=== PATIENT | female | born 1940 | race Caucasian/White ===

== ENCOUNTER 2017-04-03 13:09 | Outpatient (CLI) | payer MEDICARE, OTHER ==
--- NOTE | 2017-04-04 11:06 | PET ---
PET CT: HISTORY: 76-year-old female with metastatic breast cancer. Exam requested for restaging. TECHNIQUE: PET scanning with CT attenuation correction was performed from the base of the brain through the prox imal thighs following the intravenous administration of 11 mCi F18-FDG in the right antecubital fossa . Imaging was performed after an uptake interval of 60 minutes. COMPARISON: PET CT dated 11/12/16. FINDINGS: There is continued hypermetabolic activity in the soft tissue mass in the inferior aspect of the righ t breast with a maximum SUV of 10.3 (previously 10.7). Hypermetabolic activity in the pleural based lesions in the right lower hemithorax (predominantly lorena phragmatic surface) measures 8.1 (previously 12.1). No hypermetabolic mediastinal, hilar, axillary, cervical, or abdominopelvic lymph nodes are seen. There is a focus of increased uptake in the liver with a SUV of 4.7, which is stable. No hypermetabolic osseous or adrenal lesions are seen. There is physiologic activity in the GI and tracts. IMPRESSION: Continued hypermetabolic activity in the right pleural based lesions, right breast mass, and liver. T here is interval decrease in SUVs of the pleural based disease. POS: [facility]
== END 2017-04-03 13:10 | disposition home or self-care (01) ==
LOC: PET 13:09
PROVIDERS: ATTEND Internal Medicine Medical Oncology
DX: C50.412 Malignant neoplasm of upper-outer quadrant of left female breast (principal)
CPT/HCPCS: 78815; A9552

== ENCOUNTER 2017-07-15 12:13 | Outpatient (CLI) | payer MEDICARE, OTHER ==
--- NOTE | 2017-07-15 15:11 | PET ---
PET CT: HISTORY: A 76-year-old female with metastatic breast cancer. Exam was requested for restaging. TECHNIQUE: PET scanning with CT attenuation correction was performed from the base of the brain through the prox imal thighs following the intravenous administration of 10.3 mCi [id number] in the right antecubital fossa. Imaging was performed after an uptake interval of 52 minutes. COMPARISON: PET CT dated 04/03/17. FINDINGS: There is continued hypermetabolic activity in the soft tissue mass in the inferior aspect of the righ t breast with a maximum SUV of 10.8 (previously 10.3). Hypermetabolic activity in the pleural-based lesions in the lower hemithorax (predominantly diaphragm atic surface) is again seen with an SUV of 9.8 (previously 8.1). The focus of increased uptake in the liver on the previous exam has resolved in the interim. No hype rmetabolic liver lesions are seen. No hypermetabolic mediastinal, hilar, axillary, cervical, or abdominopelvic lymph nodes are identifie d. No hypermetabolic osseous or adrenal lesions are seen. There is physiologic activity in the GI and tracts. IMPRESSION: Interval resolution of liver lesion. Previously noted pleural-based lesions are redemonstrated. No n ew lesions are seen. POS: [facility]
== END 2017-07-15 12:14 | disposition home or self-care (01) ==
LOC: PET 12:13
PROVIDERS: ATTEND Internal Medicine Medical Oncology
DX: C50.919 Malignant neoplasm of unspecified site of unspecified female breast (principal); C78.7 Secondary malignant neoplasm of liver and intrahepatic bile duct
CPT/HCPCS: 78815; A9552

== ENCOUNTER 2017-07-21 11:22 | Outpatient (CLI) | payer MEDICARE, OTHER | END 2017-07-21 11:23 | disposition home or self-care (01) | LOC: BICMAMMO 11:22 | PROVIDERS: ATTEND Obstetrics & Gynecology | DX: Z12.31 Encounter for screening mammogram for malignant neoplasm of breast (principal); Z80.3 Family history of malignant neoplasm of breast; Z85.3 Personal history of malignant neoplasm of breast | CPT/HCPCS: 77063; 77067 ==

== ENCOUNTER 2017-07-31 10:50 | Outpatient (CLI) | payer MEDICARE, OTHER | END 2017-07-31 10:51 | disposition home or self-care (01) | LOC: BICRAD 10:50 | PROVIDERS: ATTEND Obstetrics & Gynecology | DX: C50.919 Malignant neoplasm of unspecified site of unspecified female breast (principal); R91.8 Other nonspecific abnormal finding of lung field | CPT/HCPCS: 71046 ==

== ENCOUNTER 2017-08-26 13:56 | Outpatient (CLI) | payer MEDICARE, OTHER ==
--- NOTE | 2017-08-26 15:07 | RAD ---
TWO VIEW CHEST: HISTORY: Dyspnea. COMPARISON: Prior two view chest exam of March 2014. FINDINGS: There is increasing parenchymal opacity in the peripheral right upper lobe, extending to the pleural surface. There was some density in this region previously, although the findings today are more pron ounced. This may represent progression of chronic parenchymal and pleural change, although I cannot exclude an associated infiltrate. The left lung remains clear. The heart and mediastinum are unremarkable. IMPRESSION: Increasing opacity in the right upper lobe, some of which may represent chronic change. I cannot exc lude a superimposed infiltrate. POS: [facility]
== END 2017-08-26 13:57 | disposition home or self-care (01) ==
LOC: RAD 13:56
PROVIDERS: ATTEND Internal Medicine Pulmonary Disease
DX: R06.00 Dyspnea, unspecified (principal)
CPT/HCPCS: 71046

== ENCOUNTER 2017-10-07 12:37 | Outpatient (CLI) | payer MEDICARE ==
--- NOTE | 2017-10-07 13:04 | RAD ---
TWO VIEWS CHEST: Comparison: 08-26-17 History: Dyspnea. FINDINGS: Two views of the chest shows normal sized cardiomediastinal silhouette. There is right apical pleural thickening, unchanged. There are increased interstitial markings in the right apex. There may be a s mall right pleural effusion. IMPRESSION: Stable apical thickening and interstitial markings in the right apex. POS: [facility]
== END 2017-10-07 12:38 | disposition home or self-care (01) ==
LOC: RAD 12:37
PROVIDERS: ATTEND Internal Medicine Pulmonary Disease
DX: R06.00 Dyspnea, unspecified (principal); R91.8 Other nonspecific abnormal finding of lung field
CPT/HCPCS: 71046

== ENCOUNTER 2017-10-16 08:00 | Outpatient (CLI) | payer MEDICARE, OTHER ==
--- NOTE | 2017-10-16 17:52 | PET ---
PET WITH CT SKULL TO MID THIGH 10/16/17 COMPARISON: 07/15/17 CLINICAL HISTORY: Breast cancer. RADIOPHARMACEUTICAL: 10.5 millicuries fluorine 18 FDG IV. There is appropriate biodistribution of radiotracer activity. FINDINGS: There is redemonstration of serpentine intrinsic density of the right anterolateral chest wall which demonstrates increased metabolic activity. The morphology of this finding appears vascular given its serpentine appearance as well as insinuation in a linear, vascular fashion through the intercostal sp rubens and into the pleural region of the right chest wall. In addition, there is a stable region of coa rse calcific density along the anterolateral hepatic capsule which demonstrates increased metabolic a ctivity. There are numerous hepatic lesions demonstrated. Many of which are intrinsically dense and may relate to lesions which have responded to prior therapy with associated calcification. Evaluation of PET im aging does reveal mild increased metabolic activity although many of these hepatic lesions are too sm all to meet threshold for PET resolution. One of the dominant hyperdense lesions involving posterior segment right hepatic lobe demonstrates SUV maximum of 3.4. There is redemonstration of irregular, pl eural based density of the right hemithorax, with mild increased metabolic activity with an SUV of ap proximately 2. Multifocal interstitial, ground glass, as well as reticulonodular opacification of the lungs is again seen. IMPRESSION: 1. Redemonstration of hypermetabolic activity within the right lateral chest wall, as well as th e underlying hepatic capsule, grossly stable. The serpentine appearance of the chest wall finding as well as linear insinuation via the intercostal space to the internal aspect of the chest wall along t he pleural margin indicates a vascular process. The hypermetabolic hyperdense component along the hep atic capsule appears calcific. 2. There are multiple hyperdense hepatic lesions, many of which are too small for threshold of P ET resolution, although there is a mild degree of hypermetabolic activity as discussed above. The int rinsic hyperdensity may relate to treated lesions. Residual metastasis is suggested and continued fol lowup is therefore warranted. 3. Multifocal pulmonary parenchymal and pleural based irregular opacities with mild increased me tabolic activity, nonspecific. Inflammatory and/or neoplastic etiologies are considerations. Recommen d continued followup with dedicated CT thorax. POS: [facility]
== END 2017-10-16 08:01 | disposition home or self-care (01) ==
LOC: PET 08:00
PROVIDERS: ATTEND Internal Medicine Medical Oncology
DX: C50.919 Malignant neoplasm of unspecified site of unspecified female breast (principal); K76.9 Liver disease, unspecified; R93.8 Abnormal findings on diagnostic imaging of other specified body structures
CPT/HCPCS: 78815; A9552

== ENCOUNTER 2018-04-07 12:56 | Outpatient (CLI) | payer MEDICARE ==
--- NOTE | 2018-04-07 16:38 | PET ---
PET SCAN WITH CT ATTENUATION CORRECTION: COMPARISON: 10/18/17. HISTORY: Metastatic breast cancer. Patient is status post previous chemotherapy. Examination is requested for restaging. TECHNIQUE: PET scanning with CT attenuation correction is performed from the base of the brain to the proximal t highs following the intravenous administration of 9.7 mCi F18-FDG. FINDINGS: HEAD/NECK: No abnormal FDG localization. CHEST: There are chronic changes in the lung parenchyma, greatest in the right lung apex. FDG values associa morena with these lung parenchymal changes are at the upper limits of normal with a maximum SUV of 2.5. The degree of soft tissue attenuation in the right hemithorax is essentially unchanged. There are pos tsurgical changes compatible with a left mastectomy. In the anterior right chest soft tissues, there is persistent serpentine FDG avidity which is predomi nantly along the undersurface of the right breast. Maximum SUV is 10.1. Previously, the maximum SUV w as 7.2. The overall extent of abnormal FDG localization has increased when compared to the previous e xamination. There is persistent pleural based FDG localization involving the right hemithorax, predominantly in t he intercostal spaces. Maximum SUV is 8.4. CT used for attenuation correction demonstrates a lipoma in the lateral left hemithorax. ABDOMEN/PELVIS: There appears to be increased mottled uptake of the liver which represents multifocal hepatic maligna ncies. CT used for attenuation correction demonstrates a stippled appearance of the liver with areas of intrinsic hyperdensity which may represent calcified, treated metastatic lesions. There is persi stent hypermetabolic involving the hepatic capsule, near the hepatic dome. Maximum SUV is between 4.9 and 5.4. Previously, the maximum SUV in this region was 5.4. OSSEOUS STRUCTURES: No abnormal FDG localization. IMPRESSION: 1. Multifocal hepatic metastatic lesions are suspected, given heterogeneous localization of FDG, as well as heterogeneous appearance on the CT used for attenuation correction. Abdomen and pelvic CT if clinically warranted. 2. Worsening and increased FDG localization involving the anterior right chest wall. Persistent FDG localization with associated pleural based calcification involving the right hemithorax. POS: [facility]
== END 2018-04-07 12:57 | disposition home or self-care (01) ==
LOC: PET 12:56
PROVIDERS: ATTEND Internal Medicine Medical Oncology
DX: C50.919 Malignant neoplasm of unspecified site of unspecified female breast (principal); J94.8 Other specified pleural conditions
CPT/HCPCS: 78815; A9552

== ENCOUNTER 2018-05-05 10:53 | Outpatient (CLI) | payer MEDICARE ==
--- NOTE | 2018-05-05 12:15 | RAD ---
TWO VIEW CHEST: Comparison: 05-02-18 Clinical history: Dyspnea. FINDINGS: Stable wedge shaped pleural based density at the lateral right upper lung zone with adjacent abnormal pleural/subpleural opacification of the right apex. There is slight effacement of the lateral aspect of the right lateral costophrenic sulcus indicating pleural based density. Cardiac silhouette is mil dly enlarged. There is vascular calcification and slight prominence of the central pulmonary vasculat ure. IMPRESSION: Persistent pleural/subpleural density of the upper to mid right hemithorax. There is also pleural bas ed density at the inferolateral right hemithorax. Findings are grossly stable to recent radiograph. POS: [facility]
== END 2018-05-05 10:54 | disposition home or self-care (01) ==
LOC: RAD 10:53
PROVIDERS: ATTEND Internal Medicine Pulmonary Disease
DX: R06.00 Dyspnea, unspecified (principal); J94.8 Other specified pleural conditions
CPT/HCPCS: 71046

== ENCOUNTER 2018-07-22 10:46 | Outpatient (CLI) | payer MEDICARE ==
--- NOTE | 2018-07-22 11:40 | MMO ---
Bilateral MAMMO Bilat Screen [facility]. CLINICAL HISTORY: Patient is 77 years old and is seen for screening. The patient has the following family history of breast cancer: sister, at age 60. The patient has a history of other cancer in September,. The patient has a history of left Mastectomy in 1992. VIEWS: The views performed were: bilateral craniocaudal with tomosynthesis and bilateral mediolateral oblique with tomosynthesis. FILMS COMPARED: The present examination has been compared to prior imaging studies performed at [facility] on 07/13/2013, 07/14/2014, 07/17/2015, 07/18/2016 and 07/21/2017. MAMMOGRAM FINDINGS: The breast is heterogeneously dense, which could obscure a lesion on mammography. There are benign appearing calcifications seen in the right breast. There are no suspicious masses, suspicious calcifications, or new areas of architectural distortion. IMPRESSION: THERE IS NO MAMMOGRAPHIC EVIDENCE OF MALIGNANCY. A ROUTINE FOLLOW-UP MAMMOGRAM IN 1 YEAR IS RECOMMENDED. THE RESULTS OF THIS EXAM WERE SENT TO THE PATIENT. ACR BI-RADS Category 2 - Benign finding MAMMOGRAPHY NOTE: 1. A negative mammogram report should not delay a biopsy if a dominant of clinically suspicious mass is present. 2. Approximately 10% to 15% of breast cancers are not detected by mammography. 3. Adenosis and dense breasts may obscure an underlying neoplasm.
== END 2018-07-22 10:47 | disposition home or self-care (01) ==
LOC: BICMAMMO 10:46
PROVIDERS: ATTEND Obstetrics & Gynecology
DX: Z12.31 Encounter for screening mammogram for malignant neoplasm of breast (principal); Z80.3 Family history of malignant neoplasm of breast; Z85.89 Personal history of malignant neoplasm of other organs and systems
CPT/HCPCS: 77063; 77067

== ENCOUNTER 2018-07-28 11:19 | Outpatient (CLI) | payer MEDICARE ==
--- NOTE | 2018-07-28 15:43 | PET ---
"PRELIMINARY REPORT" Exam: PET CT skull to mid thigh COMPARISON: Prior PET/CT 10/16/2017, and 04/07/2018 HISTORY: Breast cancer TECHNIQUE: A PET/CT was performed from the skull to the mid thigh after administration of 9.9 millicu odalys of F-18 FDG. Evaluation was performed on a [employer] workstation. FINDINGS: NECK: No areas of hypermetabolic activity CHEST: Multifocal parenchymal opacities are again demonstrated within each lung, demonstrating a more confluent pleural-based/subpleural density of the posterolateral right upper hemithorax. This is not hypermetabolic although does demonstrate increased metabolic activity, with an SUV of approximate ly 2.0. Redemonstration of previously described serpentine hyper metabolic activity of the right lateral ches t wall with insinuation into the right intercostal spaces as well as the immediately adjacent underlying hepatic capsule, with maximum SUV of this constellation of findings at approximately 10.9, grossly stable to SUV of this region on prior exam. ABDOMEN/PELVIS: Multifocal hypermetabolic activity along the hepatic capsule underlying the above santy cribed abnormal hypermetabolism of the adjacent chest wall is again demonstrated, with SUV maximum of approximately 5, decreased to a similar location measuring SUV of 7 on prior exam. Numerous intrin sically hyperdense hepatic lesions are redemonstrated, with multifocal small areas of hypermetabolism within the hepatic parenchyma with SUV maximum of approximately 4, although these fin dings are difficult to reliably discern given small size and they're superimposition upon metabolic hepatic parenchyma. SKELETON: A subtle focus of borderline hypermetabolic activity, SUV 2.4 is present at the right aspec t of the sacrum CT images used for attenuation correction show no additional significant interval changes. IMPRESSION: Redemonstration of hypermetabolic activity within the right lateral chest wall, as well a s the underlying hepatic capsule and insinuating within the intercostal spaces of the right chest. Findings are grossly stable. Progressive parenchymal consolidation of the lungs bilaterally without new associated hypermetabolic activity. Grossly stable metabolic foci related to numerous intrinsic hyperdense small hepatic lesions. Indeterminate borderline hypermetabolic focus of the right aspect of the sacrum. Consider whole body bone scan as follow-up. Transcribed Date/Time: 07/28/2018 4:18 PM
== END 2018-07-28 11:20 | disposition home or self-care (01) ==
LOC: PET 11:19
PROVIDERS: ATTEND Internal Medicine Medical Oncology
DX: C50.919 Malignant neoplasm of unspecified site of unspecified female breast (principal); R91.8 Other nonspecific abnormal finding of lung field
CPT/HCPCS: 78815; A9552

== ENCOUNTER 2018-08-05 09:53 | Outpatient (CLI) | payer MEDICARE ==
--- NOTE | 2018-08-05 13:33 | NM ---
WHOLE BODY BONE SCAN: HISTORY: Left breast cancer in the upper outer left breast. Abnormality seen in the right sacrum on P ET/CT. RADIOPHARMACEUTICAL: 32 mCi technetium-99m MDP injected intravenously. COMPARISON: PET/CT 07/28/2018 FINDINGS: There is increased uptake in the shoulders, elbows, hands, and feet consistent with degenerative ch anges. No other abnormal areas of tracer localization seen in the skeleton to suggest metastatic disease. No focal increased uptake is seen in either side of the sacrum. Tracer excretion through the kidneys is within normal limits. IMPRESSION: No scintigraphic evidence of osseous metastatic disease.
== END 2018-08-05 09:54 | disposition home or self-care (01) ==
LOC: NM 09:53
PROVIDERS: ATTEND Internal Medicine Medical Oncology
DX: C50.412 Malignant neoplasm of upper-outer quadrant of left female breast (principal); R93.7 Abnormal findings on diagnostic imaging of other parts of musculoskeletal system
CPT/HCPCS: 78306; A9503

== ENCOUNTER 2018-09-22 13:06 | Outpatient (CLI) | payer MEDICARE ==
--- NOTE | 2018-09-22 13:35 | RAD ---
EXAM: Chest PA and lateral: HISTORY: Breast cancer. Facial cellulitis. COMPARISON: 04/12/2014, 05/05/2018 FINDINGS: Heart: Normal cardiac silhouette Aorta: Atherosclerosis of the aortic knob Pulmonary vessels: Normal Costophrenic angles: Costophrenic angles are clear. Lungs: Diffuse interstitial opacities throughout the lung parenchyma. The degree of opacification lef t lung base has slightly progressed. There is also increased opacification in the right upper lobe. Previously noted mass-like opacity on the lateral aspect of the right upper lobe currently measures 2 .5 x 7 cm (previous the measuring 2.7 x 2.2 cm. There is slight increased opacification of the right lung apex. Pneumothorax: No pneumothorax Osseous structures: No osseous abnormalities IMPRESSION: 1. Worsening interstitial opacities throughout the lung parenchyma which may be due to progression of disease. Superimposed infiltrate cannot be excluded. 2. Worsening opacification of the left upper lobe. Correlation made with previous PET imaging does de monstrate hypermetabolic activity in this region, worrisome for malignancy. Transcribed Date/Time: 09/22/2018 2:39 PM
== END 2018-09-22 13:07 | disposition home or self-care (01) ==
LOC: BICRAD 13:06
PROVIDERS: ATTEND Internal Medicine Medical Oncology
DX: C50.919 Malignant neoplasm of unspecified site of unspecified female breast (principal); L03.211 Cellulitis of face; R91.8 Other nonspecific abnormal finding of lung field
CPT/HCPCS: 36415; 71046; 80053; 82248; 83615; 84100; 84550; 86300

== ENCOUNTER 2018-09-28 10:24 | Outpatient (CLI) | payer MEDICARE ==
[2018-09-28] MEDS ORDERED: Iopamidol 370 76% 100 ML VIAL ONE (12:08)
--- NOTE | 2018-09-28 13:58 | CT ---
CT CHEST AND ABDOMEN WITH IV CONTRAST: DATE: 09/28/2018. PROVIDED CLINICAL HISTORY: Breast cancer. FINDINGS: Comparison is made with the CT examination 06/11/2016 and correlation is made with PET CT examinations of 07/28/2018 and 04/07/2018. The density described on chest radiograph of 09/22/2018 corresponds to the pleural parenchymal changes involving the right upper lobe and adjacent pleura on PET CT of 07/28/2018. These processes were assoc iated with FDG avidity. The morphologic appearance of these foci is that of a combination of interst itial opacity and somewhat circumscribed pleural-based fluid density. The CT appearance is not signi ficantly changed wit6h respect to the CT appearance on the attenuation correction images of the PET CT scan. There is no definite evidence for a new lung parenchymal process or a new pleural p rocess. Slightly greater than physiologic pericardial fluid is demonstrated. Vascular calcification includin g coronary calcium is again seen. The airway appears patent and of normal caliber. There is no evidence for left-sided pleural fluid. There is no evidence for pneumothorax. There is marked heterogeneity of the liver with numerous hyperdense and hypodense hepatic masses. Gi rashida that some of these were shown to be hyperdense on CT examination of 07/28/2018, implying associated calcification, assessment for calcification versus enhancement of these lesions is limited on the cu rrent study. The extent of hepatic disease appears similar to the CT slices of the PET CT scan of 07/28/2018. There is stable hyperattenuating density within the subcutaneous adipose layer of the inferi or right chest wall. The spleen, pancreas, kidneys, and adrenal glands demonstrate no evidence for a significant abnormali ty. There is no bowel dilatation, free fluid, or free air apparent. There are patchy areas of occasional ly nodular density present within the greater omentum right of midline. There is no bowel dilatation or lymph node enlargement apparent. Vascular calcifications are seen. The osseous structures demonstrate no concerning lytic or blastic lesions. IMPRESSION: Though comparison with prior studies is difficult related to lack of IV contrast on the PET CT scan o f 07/28/2018 and lack of precontrast images on the current abdominal CT, there is no definite progressi on of disease apparent on the current study. POS: [facility]
== END 2018-09-28 10:25 | disposition home or self-care (01) ==
LOC: CT 10:24
PROVIDERS: ATTEND Internal Medicine Medical Oncology
DX: C50.919 Malignant neoplasm of unspecified site of unspecified female breast (principal); L03.211 Cellulitis of face
CPT/HCPCS: 71260; 74160; Q9967

== ENCOUNTER 2019-02-09 08:54 | Outpatient (CLI) | payer MEDICARE ==
--- NOTE | 2019-02-09 10:05 | CT ---
CT Chest W Con CT abdomen with contrast History: Breast cancer with liver lesions Comparison: CT chest and abdomen September 2018 Findings: Moderate paraseptal and edema. Right lateral peripheral parenchymal and pleural opacities s imilar in size. Scarring right upper lobe is similar. No new suspicious pulmonary nodule. The lung parenchyma findings would be expected post radiation the rapy. There is an associated mixed sclerosis and lytic appearance of the right first second third and fourth ribs also likely posttreatment in nature. What appear to be pleural calcified plaques is likely due to the high density material along the righ t lateral hemithorax extending to the intercostal veins. Small/moderate pericardial fluid. Abnormal hyperenhancement of the perihepatic fluid collection. Long edly nodular contour appearance of the liver with innumerable hyperdense foci. Small perisplenic fluid collection. Kidneys unremarkable. Aortic contour are similar. Adrenal glands are unremarkable. Normal proximal small bowel rotation. The volume of the liver is decreased. There is a peripheral hypodense focus of poor enhancement withi n hepatic segment 8 and 5 with peripheral capsular retraction. The common hepatic artery is markedly attenuated. There is new peripheral wedge-shaped hypodensity of the spleen suggesting infarction involving approx imate 40% the splenic volume. There is sclerosis within the T10 vertebra is similar. No new osteolytic or osteoblastic disease. Impression: 1. Similar appearance of the peripheral mild right pleural thickening may be posttreatment in nature as there is extensive cicatrization with scarring as well as sclerosis of multiple right-sided ribs. 2. No new suspicious pulmonary nodule. 3. Progressive volume loss of the liver with peripheral wedge-shaped hypodensity involving hepatic se gments 5 and 8 suggesting infarction. There is likely iatrogenic injected hyperdense linear material along the right lateral hemithorax extending into the intercostal veins. 4. Similar appearance of the extensive hepatic hyperdense foci. 5. 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 6. New congestive changes of the mesentery likely sequelae of hepatic dysfunction. 7. Dilated pulmonary arteries indicating pulmonary hypertension.
[2019-02-09] MEDS ORDERED: Iopamidol-370 76% 500 ML 1 ML ONE (13:41)
== END 2019-02-09 08:55 | disposition home or self-care (01) ==
LOC: BICCT 08:54
PROVIDERS: ATTEND Internal Medicine Medical Oncology
DX: K76.9 Liver disease, unspecified (principal); C50.919 Malignant neoplasm of unspecified site of unspecified female breast; R91.8 Other nonspecific abnormal finding of lung field; D73.5 Infarction of spleen; I28.1 Aneurysm of pulmonary artery
CPT/HCPCS: 71260; 74160; Q9967